=== PATIENT | female | born 1985 | race Caucasian/White ===

== ENCOUNTER 2016-11-22 15:11 | Emergency (ER) | payer MEDICAID ==
[~2016-11-22] VITALS: Ht 167.6 cm; Wt 68.1 kg
[2016-11-22 15:13] VITALS: BP 124/79; PULSE 94; RESP 20; TEMP 98.6; O2SAT 98
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
[2016-11-22 16:54] LABS: BACTERIA, URINE OCC /hpf; BLOOD, URINE NEG (NEG); COMMENT (UR) CULTURE INDICATED; CULTURE IF INDICATED CULTURE INDICATED; GLUCOSE,URINE NEG (NEG); KETONE, URINE NEG (NEG); MUCUS URINE FEW /lpf (OCC); NITRITE,URINE NEG (NEG); SQUAMOUS EPITHELIAL CELL URINE 2 /hpf (0-5); URINE COLOR YELLOW (YELLW/STRAW)
[2016-11-22] MEDS ORDERED: MACR100C2 PO (17:04)
[2016-11-22 18:56] LABS: CHLAMYDIA PCR NOT DETECTED (NOT DETECT); NEISSERIA PCR NOT DETECTED (NOT DETECT)
== END 2016-11-22 18:20 | disposition home or self-care (01) ==
LOC: NEPD 15:11
DX: N30.00 Acute cystitis without hematuria (principal); N89.8 Other specified noninflammatory disorders of vagina; B95.1 Streptococcus, group B, as the cause of diseases classified elsewhere; Z72.0 Tobacco use
CPT/HCPCS: 81001; 84703; 87086; 87210; 87491; 87591; 99283